=== PATIENT | male | born 1985 | race Caucasian/White ===

== ENCOUNTER 2017-05-02 16:00 | Emergency (ER) | payer SELFPAY ==
[2017-05-02] MEDS ORDERED: DICYCLOMINE HCL INJ 20 MG/2 ML AMPULE IM ONE (21:39)
[2017-05-03 04:05] LABS: APPEARANCE,URINE CLEAR; BILIRUBIN,URINE NEGATIVE (NEGATIVE); COLOR,URINE YELLOW; GLUCOSE, URINE NEGATIVE (NEGATIVE); KETONES,URINE NEGATIVE (NEGATIVE); LEUKOCYTE ESTERASE,URINE TRACE (NEGATIVE); NITRITE,URINE NEGATIVE (NEGATIVE); PROTEIN,URINE NEGATIVE (NEGATIVE); URINE SPECIFIC GRAVITY 1.011
[2017-05-03 04:09] LABS: ABSOLUTE EOSINOPHILS # (AUTO) 0.1 10^3/uL (0.0-0.6); ABSOLUTE LYMPHOCYTES (AUTO) 2.9 10^3/uL (0.5-4.7); ABSOLUTE MONOCYTES (AUTO) 0.6 10^3/uL (0.1-1.4); ABSOLUTE NEUT (AUTO) 6.8 10^3/uL (1.7-8.2); BASOPHILS % (AUTO) 0.3 % (0-2); EOSINOPHILS % (AUTO) 0.8 % (0-6); HEMATOCRIT 45.2 % (37.9-51.0); HEMOGLOBIN 15.3 g/dL (13.5-17.0); LYMPHOCYTES % (AUTO) 28.1 % (13-45); MEAN CORPUSCULAR HEMOGLOBIN 29.5 pg (27.0-33.4); MEAN CORPUSCULAR HGB CONC 33.8 g/dL (32.0-36.0); MEAN CORPUSCULAR VOLUME 87 fl (80-97); MONOCYTES % (AUTO) 5.4 % (3-13); PLATELET COUNT 307 10^3/uL (150-450); RED BLOOD COUNT 5.17 10^6/uL (4.35-5.55); RED CELL DISTRIBUTION WIDTH 12.9 % (11.5-14.0); SEGMENTED NEUTROPHILS % (AUTO) 65.4 % (42-78); TOTAL CELLS COUNTED % (AUTO) 100 %; WHITE BLOOD COUNT 10.4 10^3/uL (4.0-10.5)
--- NOTE | 2017-05-03 08:59 | RADIOLOGY REPORT (SQ) ---
EXAM DESCRIPTION: CT ABD/PELVIS WITH IV ONLY COMPLETED DATE/TIME: 05/03/2017 1:46 am REASON FOR STUDY: LOWER ABD PAIN COMPARISON: None. TECHNIQUE: CT scan of the abdomen and pelvis performed with intravenous and oral contrast using mauro jacy scanning technique with dynamic intravenous contrast injection. Images reviewed with lung, soft t issue, and bone windows. Reconstructed coronal and sagittal MPR images reviewed. Delayed images for e valuation of the urinary system also acquired. All images stored on PACS. All CT scanners at this facility use dose modulation, iterative reconstruction, and/or weight based d osing when appropriate to reduce radiation dose to as low as reasonably achievable (ALARA). [facility]: Dose Right [facility]: CareDose [facility]: Dose Right [facility]: Teradose 4D [facility]: Needbox AS CONTRAST TYPE AND DOSE: Not available RENAL FUNCTION: None required. The patient is less than 50 years old. RADIATION DOSE: . LIMITATIONS: None. FINDINGS: LOWER CHEST: No significant findings. No nodules or infiltrates. LIVER: Normal size. No masses. No dilated ducts. SPLEEN: Normal size. No focal lesions. PANCREAS: No masses. No significant calcifications. No adjacent inflammation or peripancreatic fluid collections. Pancreatic duct not dilated. GALLBLADDER: No identified stones by CT criteria. No inflammatory changes to suggest cholecystitis. ADRENAL GLANDS: No significant masses or asymmetry. RIGHT KIDNEY AND URETER: No solid masses. No significant calcifications. No hydronephrosis or hyd roureter. LEFT KIDNEY AND URETER: No solid masses. No significant calcifications. No hydronephrosis or hydr oureter. AORTA AND VESSELS: No aneurysm. No dissection. Renal arteries, SMA, celiac without stenosis. RETROPERITONEUM: No retroperitoneal adenopathy, hemorrhage or masses. BOWEL AND PERITONEAL CAVITY: No obstruction. No visualized masses. No free fluid. No inflammatory ch anges or thickening of bowel wall. APPENDIX: Surgically absent. PELVIS: No significant masses. Normal bladder. No free fluid. ABDOMINAL WALL: No masses. No hernias. BONES: No significant or acute findings. OTHER: No other significant finding. IMPRESSION: NO SIGNIFICANT OR ACUTE FINDINGS IN THE ABDOMEN OR PELVIS. TECHNICAL DOCUMENTATION: JOB ID: [id number] Quality ID # [id number]: Final reports with documentation of one or more dose reduction techniques (e.g., Au tomated exposure control, adjustment of the mA and/or kV according to patient size, use of iterative reconstruction technique) 2010 [employer]- All Rights Reserved
[2017-05-03 12:29] LABS: ANION GAP 10 (5-19); BLOOD UREA NITROGEN 13 mg/dL (7-20); CALCIUM 9.3 mg/dL (8.4-10.2); CARBON DIOXIDE 29 mmol/L (22-30); CHLORIDE 103 mmol/L (98-107); GLUCOSE 95 mg/dL (75-110); POTASSIUM 4.1 mmol/L (3.6-5.0); SODIUM 141.6 mmol/L (137-145)
[2017-05-03 12:30] LABS: ALANINE AMINOTRANSFERASE 26 U/L (21-72); ALBUMIN 4.5 g/dL (3.5-5.0); ALKALINE PHOSPHATASE 53 U/L (38-126); ASPARTATE AMINO TRANSFERASE 16 U/L (17-59); BILIRUBIN,DIRECT 0.3 mg/dL (0.0-0.4); BILIRUBIN,TOTAL 0.6 mg/dL (0.2-1.3); TOTAL PROTEIN 6.9 g/dL (6.3-8.2)
== END 2017-05-02 21:30 | disposition home or self-care (01) ==
LOC: ER 16:00
DX: R10.30 Lower abdominal pain, unspecified (principal)
CPT/HCPCS: 36415; 74177; 80053; 81001; 83690; 85025; 96374; 96375; 99284

== ENCOUNTER 2017-05-31 19:06 | Emergency (ER) | payer OTHER ==
[2017-05-31] MEDS ORDERED: HYDROCODONE/ACETAMINOPHEN 5-325 MG TABLET PO ONE (21:59)
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
[2017-05-31 23:08] VITALS: BP 118/70
== END 2017-05-31 23:08 | disposition home or self-care (01) ==
LOC: ER 19:06
DX: S89.92XA Unspecified injury of left lower leg, initial encounter (principal); M25.562 Pain in left knee; V87.7XXA Person injured in collision between other specified motor vehicles (traffic), initial encounter
CPT/HCPCS: 99283; 73562; L1830

== ENCOUNTER 2017-08-18 19:46 | Emergency (ER) | payer OTHER ==
--- NOTE | 2017-08-18 20:25 | ER Document Report ---
HPI - HPI Patient complains to provider of: Back pain radiating to both hips Onset/Duration: Waxing and waning Pain Level: 5 Context: 32-year-old lifted a 8 x 4 trailer off of his truck connector yesterday and felt a pull in his back.. The pain is worse today and radiating to both of his hips. No saddle anesthesia. No radiculopathy. No fever or chills. 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 5 Motrin this morning did not help. Associated Symptoms: None Exacerbated by: Movement Relieved by: Denies Similar symptoms previously: No Recently seen / treated by doctor: No - ROS ROS below otherwise negative: Yes Systems Reviewed and Negative: Yes All other systems reviewed and negative Past Medical History - General Information source: Patient - Social History Smoking Status: Current Every Day Smoker Frequency of alcohol use: None Drug Abuse: None Lives with: Family Family History: Reviewed & Not Pertinent - Medical History Medical History: Negative Renal/ Medical History: Denies: Hx Peritoneal Dialysis Past Surgical History: Reports: Hx Appendectomy Vertical Provider Document - CONSTITUTIONAL Agree With Documented VS: Yes Exam Limitations: No Limitations - INFECTION CONTROL TRAVEL OUTSIDE OF THE [place] IN LAST 30 DAYS: No - HEENT HEENT: Normocephalic - NECK Neck: Supple - BACK Back: Normal Inspection Notes: see below, - MUSCULOSKELETAL/EXTREMETIES Musculoskeletal/Extremeties: FROM - both hips, Tender - Bilateral lower lumbar paraspinal muscles into the sacrum - NEURO Level of Consciousness: Awake Motor/Sensory: No Motor Deficit, No Sensory Deficit Deep Tendon Reflexes: 2+ - Bilateral ankle and patellar Course - Re-evaluation Re-evalutation: 08/18/17 21:16 X-rays are negative per radiologist - Vital Signs Vital signs: Temp Pulse Resp BP Pulse Ox 98.4 F 61 16 117/70 98 08/18/17 19:52 08/18/17 19:52 08/18/17 19:52 08/18/17 19:52 08/18/17 19:52 Discharge - Discharge Instructions: Low Back Pain ([facility]), Warm Packs ([facility]), Muscle Strain ([facility]), Toradol Injection ([facility]), Acetaminophen, Ibuprofen (General) ([facility]) Additional Instructions: Motrin 800 mg 3 times a day for inflammation Tylenol up to 4000 mg a day for pain Flexeril 10 mg 3 times a day for muscle spasms Warm compress No work note until Wednesday See chiropractor if persists Return to the emergency room any concerns Prescriptions: Ibuprofen [Motrin 800 mg Tablet] 800 mg PO Q8HP PRN #30 tablet PRN Reason: Cyclobenzaprine HCl [Flexeril 10 Mg Tablet] 10 mg PO TIDP PRN #20 tablet PRN Reason: Forms: Return to Work Referrals: EFRA BEE DC [CHIROPRACTOR] - Follow up as needed
[2017-08-18] MEDS ORDERED: ACETAMINOPHEN 325 MG TABLET PO ONE (21:05)
[2017-08-18] MEDS ORDERED: KETOROLAC TROMETHAMINE 60 MG/2 ML SDV IM ONE (21:05)
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
[2017-08-18 21:43] VITALS: BP 125/72
== END 2017-08-18 21:28 | disposition home or self-care (01) ==
LOC: ER 19:46
DX: S39.012A Strain of muscle, fascia and tendon of lower back, initial encounter (principal); X50.0XXA Overexertion from strenuous movement or load, initial encounter; F17.200 Nicotine dependence, unspecified, uncomplicated
CPT/HCPCS: 99283; 96372; 72110; 73522; J1885

== ENCOUNTER 2018-11-03 17:37 | Emergency (ER) | payer OTHER ==
[2018-11-03 17:56] VITALS: BP 138/64
== END 2018-11-03 18:50 | disposition left against medical advice (07) ==
LOC: ER 17:37
DX: Z53.21 Procedure and treatment not carried out due to patient leaving prior to being seen by health care provider (principal); R07.81 Pleurodynia